=== PATIENT | female | born 1990 | race African-American/Black ===

== ENCOUNTER 2017-04-12 14:39 | Observation (INO) ==
[2017-04-12] MEDS ORDERED: ONDANSETRON ODT 4 MG TABLET PO STA (18:53)
[2017-04-12] MEDS ORDERED: ONDANSETRON ODT 4 MG TABLET PO ONE (19:03)
[2017-04-12 19:42] LABS: Apearance,Urine CLOUDY (Clear); Bacteria,Urine Occasional /HPF (Few); Bilirubin,Urine Negative (Negative); Blood, Urine Negative (Negative); Glucose,Urine (UA) Negative (Negative); Ketones,Urine Negative (Negative); Mucus,Urine Occasional /LPF (Occasional); Nitrite,Urine Negative (Negative); Protein,Urine Negative; RBC,Urine 1 /HPF (0-4); Squamous Epithelial Cell,Urine Few /HPF (0-10); Urine Color Yellow (Yellow); Urine Specific Gravity 1.023 (1.001-1.035); Urine Urobilinogen < 2.0 EU/DL (0.2-1.0); WBC,Urine 4 /HPF (0-6)
[2017-04-12 21:09] LABS: Basophils # 0.1 10*3/uL (0.0-0.2); Basophils % 0.5 % (0.0-0.8); Eosinophils # 0.3 10*3/uL (0.0-0.87); Eosinophils % 2.4 % (0.00-10.9); Hemoglobin 11.5 GM/DL (12.0-16.0); Immature Granulocytes % 0.3 %; Immature Granulocytes Absolute 0.04 #; Lymphocytes # 4.3 10*3/uL (1.4-4.0); Lymphocytes % 34.5 % (21.3-54.2); Mean Corpuscular HGB Conc 31.9 GM/DL (32-36); Mean Corpuscular Hemoglobin 25 PG (27-34); Mean Corpuscular Volume 78.8 FL (87-102); Mean Platelet Volume 10.2 FL (9.6-12.0); Monocytes # 0.7 10*3/uL (0.11-0.8); Monocytes % 5.3 % (1.7-12.7); Neutrophils # 7.1 10*3/uL (1.4-7.4); Platelet Count 238 T/CUMM (130-400); Red Blood Count 4.57 MC/CUMM (3.8-5.5); Red Cell Distribution Width 15.4 % (9.3-17.3); White Blood Count 12.5 T/CUMM (4-12)
[2017-04-13] MEDS ORDERED: BISACODYL 10 MG SUPP RECTAL PRN (00:02)
[2017-04-13] MEDS ORDERED: MAGNESIUM HYDROXIDE SUSP 30 ML UDCUP PO PRN (00:02)
[2017-04-13] MEDS ORDERED: ACETAMINOPHEN 325 MG TABLET PO PRN (00:02)
[2017-04-13] MEDS ORDERED: ONDANSETRON 4 MG/2 ML VIAL IV PRN ×2 (00:02→00:13)
[2017-04-13] MEDS ORDERED: BENZOCAINE/MENTHOL LOZENGE 18/BOX PO PRN (00:02)
[2017-04-13] MEDS ORDERED: DOCUSATE SODIUM 100 MG CAPSULE PO PRN (00:02)
[2017-04-13] MEDS ORDERED: PROPOFOL 200 MG/20 ML VIAL IV ONE (00:03)
[2017-04-13] MEDS ORDERED: GLYCOPYRROLATE 0.4 MG/2 ML VIAL ONE (00:04)
[2017-04-13] MEDS ORDERED: NEOSTIGMINE 10 MG/10 ML VIAL ONE (00:04)
[2017-04-13] MEDS ORDERED: ROCURONIUM 100 MG/10 ML VIAL IV ONE (00:04)
[2017-04-13] MEDS ORDERED: MIDAZOLAM 2 MG/2 ML VIAL ONE (00:04)
[2017-04-13] MEDS ORDERED: SEVOFLURANE 1 UNIT/15 MINUTE INH ONE (00:04)
[2017-04-13] MEDS ORDERED: fentaNYL 100 MCG/2 ML VIAL ONE (00:04)
[2017-04-13] MEDS ORDERED: HYDROmorphone 2 MG/1 ML VIAL ONE (00:09)
[2017-04-13] MEDS ORDERED: ONDANSETRON 4 MG/2 ML VIAL ONE (00:09)
[2017-04-13] MEDS: HYDROmorphone 2 MG/1 ML VIAL IV PRN ×4 (00:10→00:25)
[2017-04-13] MEDS ORDERED: ceFAZolin 1,000 MG VIAL ONE (00:15)
[2017-04-13] MEDS ORDERED: LACTATED RINGERS 1,000 ML IV SCH (00:30)
[2017-04-13] MEDS: IBUPROFEN 800 MG TABLET PO PRN ×2 (02:50→09:28)
[2017-04-13 05:03] LABS: Basophils % 0.2 % (0.0-0.8); Eosinophils % 0.2 % (0.00-10.9); Hematocrit 31.2 VOL% (35.7-47.0); Hemoglobin 10.1 GM/DL (12.0-16.0); Immature Granulocytes % 0.5 %; Immature Granulocytes Absolute 0.07 #; Lymphocytes # 1.6 10*3/uL (1.4-4.0); Lymphocytes % 11.1 % (21.3-54.2); Mean Corpuscular HGB Conc 32.4 GM/DL (32-36); Mean Corpuscular Hemoglobin 25 PG (27-34); Mean Corpuscular Volume 78.6 FL (87-102); Mean Platelet Volume 10.3 FL (9.6-12.0); Monocytes # 0.7 10*3/uL (0.11-0.8); Monocytes % 4.8 % (1.7-12.7); Neutrophils # 11.9 10*3/uL (1.4-7.4); Neutrophils % 83.2 % (38.7-73.9); Platelet Count 222 T/CUMM (130-400); Red Blood Count 3.97 MC/CUMM (3.8-5.5); Red Cell Distribution Width 15.4 % (9.3-17.3); White Blood Count 14.2 T/CUMM (4-12)
[2017-04-13] MEDS ORDERED: ceFAZolin 1,000 MG in SYRINGE 1 EACH IV SCH (06:02)
[2017-04-13 07:53] VITALS: BP 95/48
== END 2017-04-13 10:50 | disposition home or self-care (01) ==
LOC: N.ED 14:39 → N.EDINP 22:25 → INTOOBSV 22:25 → N.OB 22:29
PROVIDERS: ADMIT Specialist; ATTEND Specialist